=== PATIENT | female | born 1960 | race Caucasian/White ===

== ENCOUNTER 2025-03-22 14:12 | Emergency (ER) | payer BC, SELFPAY ==
[2025-03-22 14:15] VITALS: BP 144/80
[2025-03-22 14:39] LABS: Hematocrit 39.7 % (37.0-47.0); Hemoglobin 12.8 g/dL (12.0-16.0); Mean Corp Hgb Conc. 32.2 g/dL (33.0-37.0); Mean Corpuscular Volume 77.1 fL (81.0-99.0); Nucleated Red Blood Cells % 0 %; Platelet Count 236 10^3/uL (130-400); Red Cell Dist. Width 14.2 % (11.5-14.5)
[2025-03-22 14:40] LABS: Urine Character Clear (Clear)
[2025-03-22 15:20] LABS: ALT (SGPT) 16 U/L (0-35); AST (SGOT) 22 U/L (14-36); Albumin 4.4 g/dl (3.5-5.0); Alkaline Phosphatase 79 U/L (38-126); Blood Urea Nitrogen 19 mg/dl (7-17); Calcium 9.9 mg/dl (8.4-10.2); Carbon Dioxide 26 mmol/L (22-30); Chloride 104 mmol/L (98-107); Glucose 114 mg/dl (70-99); Lipase 138 U/L (23-300); Potassium 4.7 mmol/L (3.5-5.1); Sodium 138 mmol/L (135-145); Total Protein 7.4 g/dl (6.3-8.2); eGFR > 60.00
[2025-03-22 17:04] VITALS: BMI 20.4
--- NOTE | 2025-03-22 17:17 | ED.GENMED ---
History of Present Illness
General
Chief Complaint: Urinary Symptoms
Time Seen by Provider: 03/22/25 16:48
Nursing documentation reviewed up to this point in time: agreed with
History of Present Illness
History of Present Illness:
64-year-old female presents to the ER for further evaluation of lower abdominal discomfort which has been present consistently since Tuesday evening. She describes it to be a pressure in her lower abdomen, along with a feeling of discomfort
associated with voiding. She denies hematuria or flank pain. No fevers. She was seen at urgent care yesterday and was diagnosed with urinary tract infection. She has taken 2 doses of Macrobid along with a dose of ibuprofen last night. She was
able to sleep through the night and states that her pain is better, however she is concerned given they are planning on traveling on Tuesday. She has had routine colonoscopy and denies any recent change in bowel habits, no prior history of
diverticulitis.
Review of Systems
Review of Systems
Allergies reviewed?: Yes
Phy Exam
Physical Exam
Physical Exam:
Patient is awake, alert, appears in no acute distress, head is NCAT, PERRL, EOMI mucous membranes moist, conjunctiva pink, heart regular rate and rhythm without murmurs or ectopy, lungs are clear to auscultation without wheezes rales or rhonchi, no
JVD, abdomen is soft with tenderness on palpation right lower quadrant and mid abdomen, no CVA tenderness, extremities without edema, GCS is 15
Course
Orders/Labs/Results
Orders:
Orders
03/22/25 14:30
Complete Blood Count/With Diff Urgent
Comprehensive Metabolic Panel Urgent
Lipase Urgent
Urinalysis Reflex To Culture Urgent
Date Specimen was Collected: 03/22/25
Time Specimen was Collected: 14:23
03/22/25 16:59
CT Abd/pel Without Iv Or Oral Urgent
Comment: concern for renal colic
Reason For Exam: lower abdominal pain
03/22/25 20:39
Amoxicillin 875 mg/Clav 125 mg [Augmentin 875 mg/125 mg] 1 tablet PO NOW STA
Abnormal Lab Results
03/22/25
14:30
WBC 17.5 H 10^3/uL
(4.8-10.8)
MCV 77.1 L fL
(81.0-99.0)
MCH 24.9 L pg
(27.0-31.0)
MCHC 32.2 L g/dL
(33.0-37.0)
Abs Immat Gran (auto) 0.1 H 10^3/uL
(0-0.05)
Absolute Neuts (auto) 13.9 H 10^3/uL
(1.4-6.5)
Absolute Monos (auto) 1.2 H 10^3/uL
(0.1-0.6)
Neutrophils % 79.4 H %
(42.2-75.2)
Lymphocytes % 12.9 L %
(20.5-51.1)
BUN 19 H mg/dl
(7-17)
Creatinine 0.5 L mg/dL
(0.6-1.0)
Glucose 114 H mg/dl
(70-99)
03/22/25 14:30
03/22/25 14:30
Kidney function preserved. White blood count elevated at 17.5. Urinalysis is within normal limits
Vital Signs
Initial and Last Documented VS:
Initial Vital Signs
Temp Pulse Resp BP Pulse Ox
98.4 F 106 18 144/80 97
03/22/25 14:15 03/22/25 14:15 03/22/25 14:15 03/22/25 14:15 03/22/25 14:15
Last Documented Vital Signs
Temp Pulse Resp BP Pulse Ox
98.5 F 95 20 125/76 98
03/22/25 19:13 03/22/25 19:13 03/22/25 19:13 03/22/25 19:13 03/22/25 19:13
MDM/Problems Addressed
Differential Diagnosis Includes:
Differential diagnosis to consider but not limited to kidney stone, pyelonephritis, gastroenteritis, diverticulitis, atypical appendicitis, bowel obstruction along with other etiologies considered
*Radiology
Radiology exam reviewed: preliminary read by ED provider (I independently viewed and interpreted CT of the abdomen pelvis showing mild diverticulitis. Would await formal radiology interpretation for further care plan) and radiology read reviewed
*Pulse Oximetry
SaO2: 97
Oxygen Mode of Delivery: Room air
Patient hypoxic: no
*Critical Care Note
Total Time (30-74mins, 75-104mins- exclusive of procedures): Not Applicable
Update Note
Update Note:
Patient resting comfortably. She declined any need for analgesia while in the department awaiting CT results. Once CT result available, I discussed with patient and present bedside diagnosis of diverticulitis and treatment of same. I
discussed with patient need to complete course of antibiotics and benefit of follow-up with gastroenterology for reevaluation and repeated colonoscopy. Patient expressed understanding of discharge plan and feels comfortable. She was given first
dose of antibiotics prior to leaving the department. She and her had no questions prior to leaving the department.
ED Attending Note
-
Portions of this chart may have been created with voice recognition software.� Occasional wrong word or��sound alike� substitutions may have occurred due to the inherent limitations of voice recognition software.
Discharge Plan
Departure
Patient Disposition: Home (Routine Discharge)
Date of Disposition: 03/22/25
Time of Disposition: 20:41
Patient with high blood pressure during this ER visit?: No
Discharge Problem:
Diverticulitis
Instructions: Diverticulitis (DC)
Prescriptions:
New
amoxicillin-pot clavulanate 875-125 mg tablet
1 tab PO BID Qty: 14 0RF
No Action
Lecovoren
10 mg PO MONTHLY
Rx Instructions:
monthly
Vitamin D3
1 tab PO DAILY
methotrexate
25 mg IM MONTHLY
Referrals:
UNKNOWN - PT DOES,NOT KNOW [Unknown Provider]
Activity Restrictions/Additional Instructions:
You do not need to take any further Macrobid as this will not treat your diverticulitis. Complete course of antibiotics as prescribed. Return to the ER for any concerns. Encourage fluids. Follow a bland diet until symptoms improve. Please
follow-up with your primary care physician in 1 week for reevaluation-you may need to have repeated colonoscopy after symptoms resolve for further evaluation.
Interventions
Interventions:
*Risk Screen - Suicide Last Done: 03/22/25 14:15
*General Assessment Last Done: 03/22/25 17:04
*Neglect/Abuse Screening Last Done: 03/22/25 17:04
*ED- Fall Risk Assessment Last Done: 03/22/25 17:04
*ED COVID-19 Vaccine History Last Done: 03/22/25 17:04
ED-Female Genitourinary Assessment Last Done: 03/22/25 19:13
Discharge Date and Time
Print Language: NIGERIAN
[2025-03-22 19:13] VITALS: BP 125/76
[2025-03-22] MEDS: AUGMENTIN 875 MG/125 MG 1 TABLET PO (20:52)
== END 2025-03-22 21:30 | disposition home or self-care (01) ==
LOC: EMR 14:12
PROVIDERS: Emergency Medicine; EMERGENCY PHYSICIAN Emergency Medicine; FAMILY PHYSICIAN Internal Medicine
DX: K57.32 Diverticulitis of large intestine without perforation or abscess without bleeding (principal)
CPT/HCPCS: 99284; 74176; 80053; 81003; 83690; 85025